=== PATIENT | female | born 1995 | race Caucasian/White ===

== ENCOUNTER → 2018-05-19 | Outpatient (CLI) | payer OTHER ==
--- NOTE | 2018-05-25 06:12 | REP ---
Clinical: Anatomical evaluation. Comparison: None . Findings: Examination demonstrates a single live intrauterine in cephalic presentation. motion is identified by technologist. Placenta is noted anterior and grade 0 without evidence for placenta previa or abruption. Amniotic fluid volume is normal. Cervix measures 3.9 cm in length and appears closed. No evidence for nuchal cord. Gestational age by LMP 23 weeks 3 days with JOANNA 09/12/2018 . Gestational age by current measurements 24 weeks 0 days with JOANNA 09/08/2018 . FHR equals 180 beats per minute. BPD 6.1 cm 24 weeks 6 days HC 22.3 cm 24 weeks 2 days AC 19.6 cm 24 weeks 2 days FL 4.3 cm 24 weeks 1 day HL 4.2 cm 25 weeks 2 days HC/AC ratio 1.14 Estimated weight 676 grams ( 52nd percentile). Anatomical assessment demonstrates normal structures including cranium, choroid plexus, cavum, cerebellum/posterior fossa, facial features, lungs, four-chamber heart, diaphragm, stomach, cord insertion/three-vessel cord, kidneys/bladder, and extremities. Limited evaluation of the cardiac ventricular outflow tracts and spine due to positioning. Impression: 1. Single live intrauterine in cephalic presentation demonstrating appropriate interval growth. 2. Anatomical limitations as described above warrant reevaluation and follow-up. No gross abnormality identified. Electronically Signed by Rohan Mancuso MD 05/25/2018 06:04 A
== END ==
LOC: M LRY 11:59
PROVIDERS: ATTEND Nurse Practitioner Women's Health
DX: Z36.89 Encounter for other specified antenatal screening (principal); Z3A.24 24 weeks gestation of pregnancy

== ENCOUNTER → 2018-06-15 | Outpatient (CLI) | payer OTHER ==
[2018-06-15 13:56] LABS: HEMATOCRIT 32.5 % (36.0-47.0); HEMOGLOBIN 10.9 g/dl (12.0-15.5); MEAN CORPUSCULAR HEMOGLOBIN 27.5 pg (27.0-33.0); MEAN CORPUSCULAR HGB CONC 33.5 g/dl (32.0-36.5); MEAN CORPUSCULAR VOLUME 82.1 fl (80.0-96.0); PLATELET COUNT, AUTOMATED 188 10^3/uL (150-450); RED BLOOD COUNT 3.96 10^6/uL (4.00-5.40); WHITE BLOOD COUNT 5.5 10^3/uL (4.0-10.0)
== END ==
LOC: M LAB 12:25
PROVIDERS: ATTEND Nurse Practitioner Women's Health
DX: Z34.82 Encounter for supervision of other normal pregnancy, second trimester (principal)